=== PATIENT | male | born 1965 | race African-American/Black ===

== ENCOUNTER 2020-08-22 16:50 | Inpatient (IN) | payer OTHER, SELFPAY ==
[2020-08-22] MEDS ORDERED: Acetaminophen 500 MG TAB ONE ×2 (17:11)
[2020-08-22] MEDS ORDERED: SUMAtriptan Succinate 6 MG/0.5 ML VIAL ONE (17:11)
[2020-08-22 17:32] LABS: #Lymphocytes 1.2 thou/uL (1.20-3.40); #Monocytes 0.7 thou/uL (0.11-0.59); #Neutrophils 7.5 thou/uL (1.40-6.50); %Basophils 0.2 % (0.0-1.0); %Eosinophils 0.1 % (0.0-10.0); %Lymphocytes 12.6 % (21.0-51.0); %Monocytes 7.1 % (0.0-10.0); %Neutrophils 80.1 % (42.0-75.0); Hemoglobin 13.6 g/dL (14.0-18.0); Mean Corpuscular HGB CONC 31.7 g/dL (32.0-36.0); Mean Corpuscular Hemoglobin 25.9 pg (27.0-31.0); Mean Corpuscular Volume 81.7 fL (78.0-98.0); Mean Platelet Volume 8.9 fL (7.4-10.4); Platelet Count 200 thou/uL (130-400); RBC Distribution Width 14.2 % (11.5-14.5); Red Blood Cell (RBC) Count 5.24 mill/uL (4.70-6.10); White Blood Cell (WBC) Count 9.4 thou/uL (4.8-10.8)
[2020-08-22 17:53] LABS: ALT (SGPT) 18 U/L (8-55); AST (SGOT) 25 U/L (5-34); Albumin 4.2 g/dL (3.5-5.0); Alkaline Phosphatase 63 U/L (40-110); Anion Gap 15 mmol/L (10-20); BUN (Urea Nitrogen) 17 mg/dL (8.4-25.7); Bilirubin, Total 0.7 mg/dL (0.2-1.2); Calc. Creatinine Clearance 0 mL/min (70-130); Calcium 8.6 mg/dL (7.8-10.44); Carbon Dioxide 27 mmol/L (22-29); Chloride 97 mmol/L (98-107); Estimated GFR-MDRD 46; Globulin 3.3 g/dL (2.4-3.5); Glucose 184 mg/dL (70-105); Potassium 3.6 mmol/L (3.5-5.1); Protein, Total 7.5 g/dL (6.0-8.3); Sodium 135 mmol/L (136-145)
[2020-08-22] MEDS ORDERED: Aspirin Chewable 81 MG TAB ONE (19:30)
--- NOTE | 2020-08-22 19:36 | RAD ---
PORTABLE CHEST: 08/22/20 HISTORY: Fever. No comparison. Lungs appear of infiltrate. Heart size is upper normal. Vasculature upper normal. Mild interstitial p rominence in the lower lungs. IMPRESSION: No definite infiltrate identified. POS: AGW
[2020-08-22] MEDS ORDERED: Nitroglycerin 0.4 MG TAB (25 Tab Bottle) SL PRN (21:19)
[2020-08-22 21:22] LABS: Troponin I 0.211 ng/mL (< 0.028)
--- NOTE | 2020-08-22 21:26 | PDOC.HHP ---
Hospitalist HPI - History of Present Illness Near syncope History of Present Illness: 55-year-old gentleman with a history of hypertension presented to the emergency department because he almost passed out. Patient stated he felt faint and blackout while seated and about to eat his meal. He reports he has been experiencing intermittent fever, nasal congestion and cough over the past 5 days. He stated another family member was experiencing similar symptoms. He denied any chest pain or shortness of breath. He denied any abdominal pain or diarrhea. ED Course: EKG in the ED demonstrated Q waves in the anterior leads, T wave inversion in V4 and V5. His initial troponin elevated to 0.2. Chest x-ray showed increased interstitial markings in bilateral lower lobes, worse on the right. Screen for COVID-19 is pending. Given the elevated troponin and abnormal EKG, and CAD risk factors of hypertension, age and male sex, patient is admitted for NSTEMI. Hospitalist ROS - Review of Systems Other: Except as documented, all other systems reviewed and negative. - Medication Medications: Medication Instructions Recorded Confirmed Type Aspirin [Ecotrin Low Strength] 1 tab PO BID 08/22/20 08/22/20 History Atorvastatin Calcium [Lipitor] 1 tablet PO HS 08/22/20 08/22/20 History Diltiazem HCl [Dilt-XR] 1 capsule PO DAILY 08/22/20 08/22/20 History Doxazosin [Cardura] 8 mg PO DAILY 08/22/20 08/22/20 History Losartan/Hydrochlorothiazide 1 tablet PO DAILY 08/22/20 08/22/20 History [Losartan-Hctz 100-25 mg Tab] Hospitalist History - Past Medical History Cardiac: reports: HTN - Past Surgical History Other Surgical History: None - Family History Other Family History: No known medical problem in the family - Social History Smoking Status: Never smoker Alcohol: reports: None Drugs: reports: none Living Situation: With Family - Exam General Appearance: NAD, awake alert Eye: PERRL, anicteric sclera ENT: normocephalic atraumatic, no oropharyngeal lesions, moist mucosa Neck: supple, symmetric, no JVD, no thyromegaly Heart: RRR, no murmur, no rubs Respiratory: CTAB, no wheezes, no rales Gastrointestinal: soft, non-tender, non-distended, normal bowel sounds Extremities: no cyanosis, no edema Skin: normal turgor, no rashes Neurological: cranial nerve grossly intact, no weakness, no focal deficits Musculoskeletal: normal tone, normal strength Psychiatric: normal affect, A&O x 3 Hospitalist Results - Labs Result Diagrams: 08/22/20 17:23 08/22/20 17:24 Lab results: WBC 9.4 thou/uL (4.8-10.8) 08/22/20 17:23 Hgb 13.6 g/dL (14.0-18.0) L 08/22/20 17:23 Hct 42.8 % (42.0-52.0) 08/22/20 17:23 MCV 81.7 fL (78.0-98.0) 08/22/20 17:23 Plt Count 200 thou/uL (130-400) 08/22/20 17:23 Neutrophils % 80.1 % (42.0-75.0) H 08/22/20 17:23 Sodium 135 mmol/L (136-145) L 08/22/20 17:24 Potassium 3.6 mmol/L (3.5-5.1) 08/22/20 17:24 Chloride 97 mmol/L (98-107) L 08/22/20 17:24 Carbon Dioxide 27 mmol/L (22-29) 08/22/20 17:24 BUN 17 mg/dL (8.4-25.7) 08/22/20 17:24 Creatinine 1.56 mg/dL (0.7-1.3) H 08/22/20 17:24 Glucose 184 mg/dL (70-105) H 08/22/20 17:24 Lactic Acid 1.5 mmol/L (0.5-2.2) 08/22/20 17:24 Calcium 8.6 mg/dL (7.8-10.44) 08/22/20 17:24 Total Bilirubin 0.7 mg/dL (0.2-1.2) 08/22/20 17:24 AST 25 U/L (5-34) 08/22/20 17:24 ALT 18 U/L (8-55) 08/22/20 17:24 Alkaline Phosphatase 63 U/L (40-110) 08/22/20 17:24 CK-MB (CK-2) 1.0 ng/mL (0-6.6) 08/22/20 17:24 Troponin I 0.211 ng/mL (< 0.028) H 08/22/20 20:37 Serum Total Protein 7.5 g/dL (6.0-8.3) 08/22/20 17:24 Albumin 4.2 g/dL (3.5-5.0) 08/22/20 17:24 - EKG Interpretation EKG: Normal sinus rhythm. Q waves in V1 to V3, T wave inversion in V4 and V5. - Radiology Interpretation Chest x-ray Status: report reviewed by me (Increased interstitial markings in bilateral lower lobes.) Hospitalist H&P A/P - Problem (1) Syncope Code(s): R55 - SYNCOPE AND COLLAPSE Status: Acute (2) NSTEMI (non-ST elevated myocardial infarction) Code(s): I21.4 - NON-ST ELEVATION (NSTEMI) MYOCARDIAL INFARCTION Status: Acute (3) Hypertension Code(s): I10 - ESSENTIAL (PRIMARY) HYPERTENSION Status: Acute (4) COVID-19 ruled out Code(s): Z03.818 - ENCNTR FOR OBS FOR SUSP EXPSR TO [facility] RULED OUT Status: Acute (5) Pneumonia Code(s): J18.9 - PNEUMONIA, UNSPECIFIED ORGANISM Status: Acute - Plan Plan: Admit to telemetry. Continue to trend troponin. Will treat with full dose Lovenox, aspirin, metoprolol. Check lipid profile. Obtain echocardiogram Check orthostatic vitals. Cardiology consult Screening for COVID-19 is pending. Continue home antihypertensives for blood pressure control. Droplet isolation. Oral Zithromax for possible atypical pneumonia
[2020-08-22] MEDS ORDERED: Enoxaparin Sodium 100 MG/ML SYRINGE ONE (21:46)
[2020-08-22] MEDS ORDERED: Azithromycin 500 MG VIAL ONE (21:47)
[2020-08-22] MEDS ORDERED: Azithromycin 250 MG TAB PO SCH (22:00)
[2020-08-22 22:33] LABS: SARS-CoV-2 NAA Rapid Test DETECTED (NotDetected)
[2020-08-22 23:05] LABS: Bilirubin Negative (Negative); Blood, Urine Negative (Negative); Clarity Clear (Clear); Glucose, Urine (Dipstick) Normal (Negative); Ketone, Urine Negative (Negative); Leukocyte Negative Leu/uL (Negative); Nitrite Negative (Negative); Protein, Urine (Dipstick) 20 mg/dL (Neg-Trace); Specific Gravity, Urine 1.016 (1.002-1.036); Urobilinogen Normal mg/dL (Less than 2); pH, Urine 5.5 (5.0-9.0)
[2020-08-22 23:24] VITALS: BMI 29.7
[2020-08-23 00:15] LABS: Troponin I 0.182 ng/mL (< 0.028)
[2020-08-23] MEDS ORDERED: Acetaminophen 325 MG/10.15 ML UDCUP PO PRN (08:31)
[2020-08-23] MEDS ORDERED: Metoprolol Tartrate 25 MG TAB PO SCH (09:00)
[2020-08-23] MEDS ORDERED: Enoxaparin Sodium 100 MG/ML SYRINGE SC SCH (09:00)
[2020-08-23] MEDS ORDERED: Aspirin 81 mg Enteric Coated Tablet PO SCH (09:00)
[2020-08-23] MEDS: Dexamethasone 4 mg/ml Vial SLOW IVP SCH (09:44)
[2020-08-23] MEDS ORDERED: hydrALAZINE 20 MG/ML VIAL SLOW IVP PRN (11:44)
[2020-08-23] MEDS ORDERED: Enalaprilat Dihydrate 1.25 MG/ML VIAL SLOW IVP PRN (11:52)
--- NOTE | 2020-08-23 14:09 | PDOC.HOSPP ---
- Subjective Encounter Date: 08/23/20 Encounter Time: 09:20 Subjective: Seen for follow-up regarding COVID-19 pneumonia. Reports fever. Denies chest pain or shortness of breath. Reports cough. - Objective Vital Signs & Weight: Vital Signs (12 hours) Temp Pulse Resp BP Pulse Ox 08/23/20 12:55 98.4 F 66 20 141/74 H 94 L 08/23/20 08:20 101.1 F H 73 19 162/85 H 98 08/23/20 05:50 100.9 F H 84 16 173/89 H 96 Weight Weight 219 lb Result Diagrams: 08/22/20 17:23 08/22/20 17:24 Additional Labs: I reviewed patient's labs and MAR EKG Reviewed by me: Yes (Telemetry: Normal sinus rhythm) Hospitalist ROS - Review of Systems Constitutional: reports: fever, weakness. denies: chills, sweats, malaise Respiratory: reports: cough, dry. denies: shortness of breath, hemoptysis, SOB with excertion, pleuritic pain, sputum, wheezing Cardiovascular: denies: chest pain, palpitations, orthopnea, paroxysmal noc. dyspnea, edema, light headedness Gastrointestinal: denies: nausea, vomiting, abdominal pain, diarrhea, constipation, melena, hematochezia Genitourinary: denies: dysuria, frequency, incontinence, hematuria, retention - Medication Medications: Active Medications Generic Name Dose Route Start Last Admin Trade Name Freq PRN Reason Stop Dose Admin Acetaminophen 650 mg 08/23/20 08:31 08/23/20 09:44 Acetaminophen 325 Mg/10.15 Ml Udcup PO 650 mg Q6H PRN Administration Fever/Mild Pain Azithromycin 500 mg 08/22/20 22:00 08/23/20 00:12 Azithromycin 250 Mg Tab PO 08/25/20 22:01 500 mg Q24HR RAYO Administration Dexamethasone 6 mg 08/23/20 09:00 08/23/20 09:44 Dexamethasone 4 Mg/Ml Vial SLOW IVP 6 mg DAILY RAYO Administration Sodium Chloride 10 ml 08/23/20 09:00 08/23/20 08:19 Flush - Normal Saline 10 Ml Syringe IVF 10 ml Q12HR RAYO Administration - Exam General Appearance: awake alert Eye: anicteric sclera ENT: moist mucosa Neck: supple, symmetric, no thyromegaly, no lymphadenopathy Heart: RRR, no gallops, no rubs, normal peripheral pulses Respiratory: CTAB, no wheezes, no rales, no ronchi Gastrointestinal: soft, non-tender, non-distended, normal bowel sounds Extremities: no cyanosis Skin: no rashes Musculoskeletal: no muscle wasting Psychiatric: normal affect, normal behavior, oriented to person, oriented to place Hosp A/P (1) Pneumonia due to COVID-19 virus Code(s): U07.1 - COVID-19; J12.89 - OTHER VIRAL PNEUMONIA Status: Acute (2) Myocardial infarction Code(s): I21.9 - ACUTE MYOCARDIAL INFARCTION, UNSPECIFIED Status: Acute Qualifiers: Myocardial infarction type: type 2 Qualified Code(s): I21.A1 - Myocardial infarction type 2 (3) Dyslipidemia Code(s): E78.5 - HYPERLIPIDEMIA, UNSPECIFIED Status: Chronic (4) Hypertension Code(s): I10 - ESSENTIAL (PRIMARY) HYPERTENSION Status: Chronic - Plan Start patient on dexamethasone, monitor d-dimer, C-reactive protein and ferritin every other day. Consult infectious disease service for opinion and help with management. Patient is hemodynamically stable at this time. Resume home antihypertensives, add PRN IV Vasotec for blood pressure spikes. Resume statin. Change enoxaparin to 40 mg twice daily.
[2020-08-23] MEDS: Aspirin 81 mg Enteric Coated Tablet PO SCH (20:19)
[2020-08-23] MEDS: Enoxaparin Sodium 40 MG/0.4 ML SYRINGE SC SCH (20:19)
[2020-08-23] MEDS: Atorvastatin Calcium 40 MG TAB PO SCH (20:19)
--- NOTE | 2020-08-23 20:36 | CON ---
DATE OF CONSULTATION: HISTORY OF PRESENT ILLNESS: A 55-year-old patient, history of hypertension, who has had respiratory illness for the past 7 days among other members of his family. 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 He came to emergency room because of sensation of lightheadedness and near syncopal event, blurred vision. No headaches. No visual symptoms other than the transient episode. No sore throat, odynophagia, or dysphagia. No anosmia. Some cough, mild dyspnea. No chest pain. No abdominal pain or diarrhea. No genitourinary symptoms. No joint symptoms. PAST MEDICAL HISTORY: Hypertension. SOCIAL HISTORY: He is a behavioral health assistant. Never smoker. Originally from [facility], lived in [place], then in [facility], and now he has been for 22 years in this area. 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 ALLERGIES: NONE. MEDICATIONS: He had been on losartan, aspirin, atorvastatin, and doxazosin. Currently, he is receiving Decadron and azithromycin among other things. FAMILY HISTORY: Noncontributory, except for the respiratory illness in a number of members of his family. PHYSICAL EXAMINATION: VITAL SIGNS: T-max 101.1, BP 140/70, heart rate 66, and O2 saturation 94% to 98%. SKIN: Normal. LYMPHATICS: No lymphadenopathy. HEENT: Ocular movements conjugate. Nasal passages patent. Oral cavity normal. NECK: Supple. LUNGS: Symmetric, clear breath sounds. HEART: S1 and S2. Regular rate. No S3 or S4. ABDOMEN: Soft, nondistended, and nontender. No ascites. No bladder distention. EXTREMITIES: No joint inflammatory activity. NEUROLOGIC: Nonfocal. Cognitive function normal. LABORATORIES: Sodium 135, creatinine 1.56. Liver profile normal. Albumin 4.2. Urinalysis normal. SARS-CoV RNA PCR positive. White cell count 9.4, hemoglobin 13, and platelets 200. Lymphocyte count 1.2. CRP was 8.02. Ferritin was 211. Chest x-ray with no obvious infiltrates noted. ASSESSMENT: 1. Hypertension. 2. SARS-CoV-2 infection with early pneumonia. DISCUSSION: Patient is at 7th day of illness and he still could deteriorate in the ensuing days. We will see how he does in the next 24 to 48 hours. He has been started on Decadron. Most of the recommendations for Decadron pertained to patients with at least [id number] illness, but I will keep him on Decadron since his O2 saturations are starting to go down a little bit. I do not think he is eligible for Remdesivir at this point in time. Patient has been given enoxaparin. We will go ahead and discontinue azithromycin. Job ID: [id number]
[2020-08-24 05:37] LABS: ALT (SGPT) 18 U/L (8-55); AST (SGOT) 24 U/L (5-34); Albumin 3.7 g/dL (3.5-5.0); Alkaline Phosphatase 58 U/L (40-110); Bilirubin, Direct 0.2 mg/dL (0.1-0.3); Bilirubin, Total 0.5 mg/dL (0.2-1.2); Protein, Total 6.8 g/dL (6.0-8.3)
[2020-08-24] MEDS: Aspirin 81 mg Enteric Coated Tablet PO SCH ×2 (07:58→21:13)
[2020-08-24] MEDS: Dexamethasone 4 mg/ml Vial SLOW IVP SCH (07:59)
[2020-08-24] MEDS: Doxazosin 2 MG TAB PO SCH (07:59)
[2020-08-24] MEDS: Enoxaparin Sodium 40 MG/0.4 ML SYRINGE SC SCH ×2 (08:00→21:13)
[2020-08-24] MEDS: Losartan/Hydrochlorothiazide 100 mg/25 mg Tablet PO SCH (08:00)
[2020-08-24] MEDS: Acetaminophen 325 MG TAB PO PRN (08:43)
[2020-08-24] MEDS ORDERED: Ascorbic Acid 500 mg Chewable Tablet PO SCH (11:00)
[2020-08-24] MEDS ORDERED: Zinc Sulfate 220 MG CAP PO SCH (11:00)
--- NOTE | 2020-08-24 15:19 | PDOC.HOSPP ---
- Subjective Encounter Date: 08/24/20 Encounter Time: 09:30 Subjective: Patient seen for follow-up regarding COVID-19 pneumonia. He reports feeling better. - Objective Vital Signs & Weight: Vital Signs (12 hours) Temp Pulse Resp BP BP Pulse Ox 08/24/20 12:20 98.6 F 65 18 133/71 98 08/24/20 08:29 101.9 F H 92 20 176/92 H 96 08/24/20 04:00 99.6 F 69 15 164/80 H 97 Weight Admit Weight 219 lb Weight 219 lb I&O: 08/23/20 08/24/20 08/25/20 06:59 06:59 06:59 Intake Total 200 720 Balance 200 720 Result Diagrams: 08/22/20 17:23 08/22/20 17:24 Additional Labs: I reviewed patient's labs and MAR EKG Reviewed by me: Yes (Telemetry: NSR) Hospitalist ROS - Review of Systems Respiratory: reports: cough, dry. denies: shortness of breath, hemoptysis, SOB with excertion, pleuritic pain, sputum, wheezing Cardiovascular: denies: chest pain, palpitations, orthopnea, paroxysmal noc. dyspnea, edema, light headedness - Medication Medications: Active Medications Generic Name Dose Route Start Last Admin Trade Name Freq PRN Reason Stop Dose Admin Acetaminophen 650 mg 08/24/20 08:45 08/24/20 08:43 Acetaminophen 325 Mg Tab PO 650 mg Q6H PRN Administration Fever/Mild Pain Aspirin 81 mg 08/23/20 21:00 08/24/20 07:58 Aspirin 81 Mg Enteric Coated Tablet PO 81 mg BID RAYO Administration Atorvastatin Calcium 40 mg 08/23/20 21:00 08/23/20 20:19 Atorvastatin Calcium 40 Mg Tab PO 40 mg HS RAYO Administration Dexamethasone 6 mg 08/23/20 09:00 08/24/20 07:59 Dexamethasone 4 Mg/Ml Vial SLOW IVP 6 mg DAILY RAYO Administration Diltiazem HCl 240 mg 08/24/20 09:00 08/24/20 07:59 Diltiazem Hcl Cd 240 Mg Capsule PO 240 mg DAILY RAYO Administration Doxazosin Mesylate 8 mg 08/24/20 09:00 08/24/20 07:59 Doxazosin 2 Mg Tab PO 8 mg DAILY RAYO Administration Enoxaparin Sodium 40 mg 08/23/20 21:00 08/24/20 08:00 Enoxaparin Sodium 40 Mg/0.4 Ml Syringe SC 40 mg 0900,2100 RAYO Administration HCTZ/Losartan Potassium 1 tab 08/24/20 09:00 08/24/20 08:00 Losartan/Hydrochlorothiazide 100 Mg/25 Mg Tablet PO 1 tab DAILY RAYO Administration Sodium Chloride 10 ml 08/23/20 09:00 08/24/20 08:00 Flush - Normal Saline 10 Ml Syringe IVF 10 ml Q12HR RAYO Administration - Exam General Appearance: awake alert Eye: anicteric sclera ENT: moist mucosa Neck: supple Heart: RRR Respiratory: CTAB Gastrointestinal: soft, non-tender Extremities: no edema Skin: no rashes Psychiatric: normal affect, normal behavior Hosp A/P (1) Pneumonia due to COVID-19 virus Code(s): U07.1 - COVID-19; J12.89 - OTHER VIRAL PNEUMONIA Status: Acute (2) Myocardial infarction Code(s): I21.9 - ACUTE MYOCARDIAL INFARCTION, UNSPECIFIED Status: Acute Qualifiers: Myocardial infarction type: type 2 Qualified Code(s): I21.A1 - Myocardial infarction type 2 (3) Dyslipidemia Code(s): E78.5 - HYPERLIPIDEMIA, UNSPECIFIED Status: Chronic (4) Hypertension Code(s): I10 - ESSENTIAL (PRIMARY) HYPERTENSION Status: Chronic - Plan Continue patient on dexamethasone. Add zinc and vitamin C. Patient is hemodynamically stable at this time. Blood pressure improved today. Continue statin. Continue enoxaparin 40 mg twice daily.
[2020-08-24] MEDS: Atorvastatin Calcium 40 MG TAB PO SCH (21:13)
[2020-08-25] MEDS: Acetaminophen 325 MG TAB PO PRN (02:20)
[2020-08-25 05:26] LABS: ALT (SGPT) 18 U/L (8-55); AST (SGOT) 23 U/L (5-34); Albumin 3.7 g/dL (3.5-5.0); Alkaline Phosphatase 60 U/L (40-110); Bilirubin, Direct 0.3 mg/dL (0.1-0.3); Bilirubin, Total 0.6 mg/dL (0.2-1.2); Protein, Total 6.8 g/dL (6.0-8.3)
[2020-08-25] MEDS: Losartan/Hydrochlorothiazide 100 mg/25 mg Tablet PO SCH (09:31)
[2020-08-25] MEDS: Dexamethasone 4 mg/ml Vial SLOW IVP SCH (09:31)
[2020-08-25] MEDS: Enoxaparin Sodium 40 MG/0.4 ML SYRINGE SC SCH ×2 (09:31→21:57)
[2020-08-25] MEDS: Doxazosin 2 MG TAB PO SCH (09:31)
[2020-08-25] MEDS: Zinc Sulfate 220 MG CAP PO SCH (09:32)
[2020-08-25] MEDS: Aspirin 81 mg Enteric Coated Tablet PO SCH ×2 (09:32→21:57)
[2020-08-25] MEDS: Ascorbic Acid 500 mg Chewable Tablet PO SCH (09:32)
--- NOTE | 2020-08-25 15:05 | PDOC.HOSPP ---
- Subjective Encounter Date: 08/25/20 Encounter Time: 13:00 Subjective: Patient seen for follow-up regarding COVID-19 pneumonia. Feels better. - Objective Vital Signs & Weight: Vital Signs (12 hours) Temp Pulse Resp BP Pulse Ox 08/25/20 11:33 99.8 F H 72 20 147/80 H 96 08/25/20 09:40 99.2 F 66 20 143/82 H 98 08/25/20 03:47 98.9 F 75 19 153/82 H 97 Weight Admit Weight 219 lb Weight 219 lb I&O: 08/24/20 08/25/20 08/26/20 06:59 06:59 06:59 Intake Total 200 1510 240 Balance 200 1510 240 Result Diagrams: 08/22/20 17:23 08/22/20 17:24 Additional Labs: I reviewed patient's labs and MAR EKG Reviewed by me: Yes (Telemetry: NSR) Hospitalist ROS - Review of Systems Respiratory: denies: cough, shortness of breath, SOB with excertion, pleuritic pain, wheezing Cardiovascular: denies: chest pain, palpitations, orthopnea, paroxysmal noc. dyspnea, edema, light headedness - Medication Medications: Active Medications Generic Name Dose Route Start Last Admin Trade Name Freq PRN Reason Stop Dose Admin Acetaminophen 650 mg 08/24/20 08:45 08/25/20 02:20 Acetaminophen 325 Mg Tab PO 650 mg Q6H PRN Administration Fever/Mild Pain Ascorbic Acid 1,000 mg 08/25/20 09:00 08/25/20 09:32 Ascorbic Acid 500 Mg Chewable Tablet PO 1,000 mg DAILY RAYO Administration Aspirin 81 mg 08/23/20 21:00 08/25/20 09:32 Aspirin 81 Mg Enteric Coated Tablet PO 81 mg BID RAYO Administration Atorvastatin Calcium 40 mg 08/23/20 21:00 08/24/20 21:13 Atorvastatin Calcium 40 Mg Tab PO 40 mg HS RAYO Administration Dexamethasone 6 mg 08/23/20 09:00 08/25/20 09:31 Dexamethasone 4 Mg/Ml Vial SLOW IVP 6 mg DAILY RAYO Administration Diltiazem HCl 240 mg 08/24/20 09:00 08/25/20 09:32 Diltiazem Hcl Cd 240 Mg Capsule PO 240 mg DAILY RAYO Administration Doxazosin Mesylate 8 mg 08/24/20 09:00 08/25/20 09:31 Doxazosin 2 Mg Tab PO 8 mg DAILY RAYO Administration Enoxaparin Sodium 40 mg 08/23/20 21:00 08/25/20 09:31 Enoxaparin Sodium 40 Mg/0.4 Ml Syringe SC 40 mg 0900,2100 RAYO Administration HCTZ/Losartan Potassium 1 tab 08/24/20 09:00 08/25/20 09:31 Losartan/Hydrochlorothiazide 100 Mg/25 Mg Tablet PO 1 tab DAILY RAYO Administration Sodium Chloride 10 ml 08/23/20 09:00 08/25/20 09:31 Flush - Normal Saline 10 Ml Syringe IVF 10 ml Q12HR RAYO Administration Zinc Sulfate 220 mg 08/25/20 09:00 08/25/20 09:32 Zinc Sulfate 220 Mg Cap PO 220 mg DAILY RAYO Administration - Exam General Appearance: awake alert Eye: anicteric sclera ENT: moist mucosa Neck: supple Heart: RRR Respiratory: CTAB Gastrointestinal: soft Extremities: no edema Skin: no rashes Neurological: no focal deficits Psychiatric: normal affect Hosp A/P (1) Pneumonia due to COVID-19 virus Code(s): U07.1 - COVID-19; J12.89 - OTHER VIRAL PNEUMONIA Status: Acute (2) Myocardial infarction Code(s): I21.9 - ACUTE MYOCARDIAL INFARCTION, UNSPECIFIED Status: Acute Qualifiers: Myocardial infarction type: type 2 Qualified Code(s): I21.A1 - Myocardial infarction type 2 (3) Dyslipidemia Code(s): E78.5 - HYPERLIPIDEMIA, UNSPECIFIED Status: Chronic (4) Hypertension Code(s): I10 - ESSENTIAL (PRIMARY) HYPERTENSION Status: Chronic - Plan Continue dexamethasone, zinc and vitamin C. Patient is hemodynamically stable at this time. Blood pressure improved today. Patient is on statin. Patient is on enoxaparin 40 mg twice daily.
[2020-08-25] MEDS: Atorvastatin Calcium 40 MG TAB PO SCH (21:58)
[2020-08-25] MEDS ORDERED: Benzonatate 100 MG CAP PO PRN (22:58)
[2020-08-26 05:42] LABS: ALT (SGPT) 20 U/L (8-55); AST (SGOT) 21 U/L (5-34); Albumin 3.5 g/dL (3.5-5.0); Alkaline Phosphatase 74 U/L (40-110); Bilirubin, Direct 0.2 mg/dL (0.1-0.3); Bilirubin, Total 0.5 mg/dL (0.2-1.2); Protein, Total 6.9 g/dL (6.0-8.3)
[2020-08-26] MEDS: Zinc Sulfate 220 MG CAP PO SCH (08:33)
[2020-08-26] MEDS: Aspirin 81 mg Enteric Coated Tablet PO SCH (08:33)
[2020-08-26] MEDS: Doxazosin 2 MG TAB PO SCH (08:33)
[2020-08-26] MEDS: Dexamethasone 4 mg/ml Vial SLOW IVP SCH (08:33)
[2020-08-26] MEDS: Losartan/Hydrochlorothiazide 100 mg/25 mg Tablet PO SCH (08:33)
[2020-08-26] MEDS: Enoxaparin Sodium 40 MG/0.4 ML SYRINGE SC SCH (08:33)
[2020-08-26] MEDS: Ascorbic Acid 500 mg Chewable Tablet PO SCH (08:33)
[2020-08-26 12:10] VITALS: BP 151/72; TEMP 97.7
--- NOTE | 2020-08-27 00:51 | DIS ---
DATE OF ADMISSION: 08/22/2020 DATE OF DISCHARGE: 08/26/2020 PRIMARY CARE PROVIDER: Dr. Anthony Hinton. DISCHARGE DIAGNOSES: 1. COVID-19 pneumonia. 2. Non-ST elevation myocardial infarction type 2. CONDITION OF PATIENT ON THE DAY OF DISCHARGE: Stable. I assessed Mr. Quezada on the day of discharge. He denies any chest pain or shortness of breath. He denies any cough. Vital signs are stable. S1 and S2 are heard, regular. Lungs are clear to auscultation bilaterally. DISCHARGE MEDICATIONS: 1. Dexamethasone 6 mg daily for six days. 2. Vitamin C 1000 mg daily for six days. 3. Zinc sulfate 220 mg daily for six days. Otherwise, no change was made to his pre-admission home medications. CONSULTATIONS DURING THIS HOSPITALIZATION: Infectious Disease, Dr. Zepeda. HOSPITAL COURSE: Mr. Quezada is a pleasant 55-year-old gentleman, who was admitted to [facility] on August 26, 2020, for COVID-19 pneumonia. He was seen by Infectious Disease Service. He was treated with dexamethasone, zinc and vitamin C. He continued to improve clinically. He is being discharged home in a stable condition. POST ACUTE CARE FOLLOWUP: With primary care provider in 3 days. ACTIVITY: As tolerated. DIET: Heart healthy. DISCHARGE DESTINATION: Home. TIME SPENT: Total amount of time spent coordinating this discharge: 25 minutes. Job ID: [id number]
== END 2020-08-26 16:30 | disposition home or self-care (01) | DRG 177 ==
LOC: ERS 16:50 → 2SW 20:16
PROVIDERS: ADMIT Internal Medicine; ATTEND Internal Medicine
PROC: 8E0ZXY6 Isolation (ICD-10-PCS; principal; 2020-08-22)
DX: U07.1 COVID-19 (principal); J12.89 Other viral pneumonia; I21.A1 Myocardial infarction type 2; E78.5 Hyperlipidemia, unspecified; I10 Essential (primary) hypertension; Z79.899 Other long term (current) drug therapy; Z79.82 Long term (current) use of aspirin
CPT/HCPCS: 36415; 71045; 80053; 80076; 81003; 82553; 82728; 83605; 84484; 85025; 85379; 86140; 87040; 87086; 93005; 94760; 96365; 96372; J0456; J1100; J1650; J3030; U0002